=== PATIENT | female | born 1990 | race American Indian/Alaskan Native ===

== ENCOUNTER 2018-02-07 19:30 | Day surgery (SDC) | payer SELFPAY ==
[2018-02-07] MEDS ORDERED: NACL 0.9% 1000 ML 1,000 ML IV ONE (20:09)
[2018-02-07 20:29] LABS: Basophils # (Auto) 0.1 K/mm3 (0.0-0.1); Basophils % (Auto) 0.9 % (0.0-1.8); Eosinophils # (Auto) 0.2 K/mm3 (0.0-0.4); Eosinophils % (Auto) 1.7 % (0.0-4.3); Hematocrit 36.8 % (30.3-42.9); Hemoglobin 12.4 gm/dl (10.1-14.3); Lymphocytes # (Auto) 2.6 K/mm3 (1.2-5.4); Lymphocytes % (Auto) 27.2 % (13.4-35.0); Mean Corpuscular HGB Conc 34 % (30-34); Mean Corpuscular Hemoglobin 26 pg (28-32); Mean Corpuscular Volume 78 fl (79-97); Monocytes # (Auto) 0.5 K/mm3 (0.0-0.8); Monocytes % (Auto) 5.4 % (0.0-7.3); Platelet Count 293 K/mm3 (140-440); Red Blood Count 4.74 M/mm3 (3.65-5.03); Red Cell Distribution Width 14.3 % (13.2-15.2)
[2018-02-07 20:54] LABS: Blood Urea Nitrogen 8 mg/dL (7-17)
[2018-02-07 20:55] LABS: Alanine Aminotransferase 12 units/L (7-56); Albumin 4.2 g/dL (3.9-5); BUN/Creatinine Ratio 13; Calcium 8.8 mg/dL (8.4-10.2); Hemolysis Index 3
[2018-02-07 21:20] LABS: Bacteria,Urine 2+ /HPF (Negative); Bilirubin,Urine NEG (Negative); Blood,Urine NEG (Negative); Color,Urine Yellow (Yellow); Hyaline Casts,Urine 1 /LPF; Mucus,Urine FEW /HPF; Protein,Urine <15 mg/dL mg/dL (Negative)
[2018-02-08] MEDS ORDERED: MARCAINE 0.5% INFILTRATI ONE
--- NOTE | 2018-02-08 00:14 | Emergency Department Report ---
ED Abdominal Pain HPI - General Chief Complaint: Abdominal Pain Stated Complaint: ABD PAIN/ ISSUES Time Seen by Provider: 02/08/18 00:08 Source: patient Mode of arrival: Ambulatory Limitations: No Limitations - History of Present Illness Initial Comments: Patient is a 27-year-old -[place] female last menstrual cycle 4 weeks ago positive home test and presents for abdominal pain for 2 and cramping aching dysuria with frequency no fever no chills no nausea vomiting no vaginal bleeding at this point MD Complaint: abdominal pain Onset/Timin -: days(s) Location: LLQ, RLQ, suprapubic Radiation: LLQ, RLQ Migration to: LLQ, RLQ Severity: moderate Severity scale (0 -10): 4 Quality: cramping, aching Consistency: constant Improves With: nothing Worsens With: nothing Associated Symptoms: denies: nausea, vomiting, diarrhea, fever, chills, constipation, dysuria, hematemesis, hematochezia, melena, hematuria, anorexia, syncope - Related Data LMP (females 10-50): 1 month Allergies Allergy/AdvReac Type Severity Reaction Status Date / Time No Known Allergies Allergy Verified 02/08/18 00:12 ED Review of Systems ROS: Stated complaint: ABD PAIN/ ISSUES Other details as noted in HPI Constitutional: denies: chills, fever Eyes: denies: eye pain, eye discharge, vision change ENT: denies: ear pain, throat pain Respiratory: denies: cough, shortness of breath, wheezing Cardiovascular: denies: chest pain, palpitations Endocrine: no symptoms reported Gastrointestinal: abdominal pain. denies: nausea, vomiting, diarrhea, constipation, hematemesis, melena, hematochezia Genitourinary: urgency, dysuria, frequency, abnormal menses. denies: hematuria , discharge Musculoskeletal: denies: back pain, joint swelling, arthralgia Skin: denies: rash, lesions Neurological: denies: headache, weakness, paresthesias Psychiatric: denies: anxiety, depression Hematological/Lymphatic: denies: easy bleeding, easy bruising ED Past Medical Hx - Past Medical History Previous Medical History?: No - Surgical History Past Surgical History?: No - Social History Smoking Status: Current Every Day Smoker Substance Use Type: Marijuana ED Physical Exam - General Limitations: No Limitations General appearance: alert, in no apparent distress - Head Head exam: Present: atraumatic, normocephalic - Eye Eye exam: Present: normal appearance, PERRL, EOMI Pupils: Present: normal accommodation - ENT ENT exam: Present: normal exam - Neck Neck exam: Present: normal inspection, full ROM. Absent: tenderness, lymphadenopathy, thyromegaly - Respiratory Respiratory exam: Present: normal lung sounds bilaterally. Absent: respiratory distress, wheezes, stridor, chest wall tenderness - Cardiovascular Cardiovascular Exam: Present: regular rate, normal rhythm, normal heart sounds. Absent: systolic murmur, diastolic murmur, rubs, gallop - GI/Abdominal GI/Abdominal exam: Present: soft, tenderness (RLQ LLQ Superpubic ), normal bowel sounds. 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 Absent: tenderness - Back Exam Back exam: Present: normal inspection, full ROM. Absent: tenderness, CVA tenderness (R), CVA tenderness (L), muscle spasm, paraspinal tenderness, vertebral tenderness - Neurological Exam Neurological exam: Present: alert, oriented X3 - Psychiatric Psychiatric exam: Present: normal affect, normal mood - Skin Skin exam: Present: warm, dry, intact, normal color. Absent: rash ED Course Vital Signs 02/07/18 02/08/18 02/08/18 19:35 01:42 02:33 Temperature 97.4 F L Pulse Rate 74 64 Respiratory 16 18 18 Rate Blood Pressure 139/78 Blood Pressure 113/58 [Right] O2 Sat by Pulse 99 98 100 Oximetry ED Medical Decision Making - Lab Data Result diagrams: 02/07/18 20:16 02/07/18 20:16 Laboratory Tests 02/07/18 02/07/18 02/07/18 20:16 20:16 20:16 WBC 9.4 RBC 4.74 Hgb 12.4 Hct 36.8 MCV 78 L MCH 26 L MCHC 34 RDW 14.3 Plt Count 293 Lymph % (Auto) 27.2 Citrus % (Auto) 5.4 Eos % (Auto) 1.7 Baso % (Auto) 0.9 Lymph # 2.6 Citrus # 0.5 Eos # 0.2 Baso # 0.1 Seg Neutrophils % 64.8 Seg Neutrophils # 6.1 Sodium 140 Potassium 3.8 Chloride 101.3 Carbon Dioxide 25 Anion Gap 18 BUN 8 Creatinine 0.6 L Estimated GFR > 60 BUN/Creatinine Ratio 13 Glucose 110 H Calcium 8.8 Total Bilirubin 0.20 AST 21 ALT 12 Alkaline Phosphatase 83 Total Protein 7.4 Albumin 4.2 Albumin/Globulin Ratio 1.3 HCG, Quant 7199 H Urine Color Urine Turbidity Urine pH Ur Specific Garfield Urine Protein Urine Glucose (UA) Urine Ketones Urine Blood Urine Nitrite Urine Bilirubin Urine Urobilinogen Ur Leukocyte Esterase Urine WBC (Auto) Urine RBC (Auto) U Epithel Cells (Auto) Urine Bacteria (Auto) Hyaline Casts Urine Mucus 02/07/18 20:50 WBC RBC Hgb Hct MCV MCH MCHC RDW Plt Count Lymph % (Auto) Citrus % (Auto) Eos % (Auto) Baso % (Auto) Lymph # Citrus # Eos # Baso # Seg Neutrophils % Seg Neutrophils # Sodium Potassium Chloride Carbon Dioxide Anion Gap BUN Creatinine Estimated GFR BUN/Creatinine Ratio Glucose Calcium Total Bilirubin AST ALT Alkaline Phosphatase Total Protein Albumin Albumin/Globulin Ratio HCG, Quant Urine Color Yellow Urine Turbidity Slightly-cloudy Urine pH 6.0 Ur Specific Garfield 1.023 Urine Protein <15 mg/dl Urine Glucose (UA) Neg Urine Ketones Neg Urine Blood Neg Urine Nitrite Neg Urine Bilirubin Neg Urine Urobilinogen 4.0 Ur Leukocyte Esterase Mod Urine WBC (Auto) 4.0 Urine RBC (Auto) 4.0 U Epithel Cells (Auto) 24.0 H Urine Bacteria (Auto) 2+ Hyaline Casts 1 Urine Mucus Few - Radiology Data Radiology results: report reviewed, image reviewed likely Ectopic - Medical Decision Making Ultrasound shows empty uterus ovaries 2 circular mass in proximity of the right ovary, likely ectopic discussed finding with patient plan Consult HAND MOLD MAKER surgery confirmed signed with Dr. Membreno advises will see patient at bedside to make decision on versus weight and see, versus methotrexate, versus surgical intervention there is no vaginal bleeding at this time patient is reasonably comfortable with abdominal cramping at 2/ 10 patient denies medication at this time for pain awaiting HAND MOLD MAKER consult all labs noted and obtained a type and cross pending , [id number]: OBGYN Consult to bedside will admit to OBGYN Dx: Ectopic , to OR for possible Salpingotomy, Dr. Darren JACOBSON at bedside at this time. pt to be admitted to same. Critical care attestation.: If time is entered above; I have spent that time in minutes in the direct care of this critically ill patient, excluding procedure time. ED Disposition Clinical Impression: Ectopic Qualifiers: Location of ectopic : unspecified location Intrauterine status: without intrauterine Qualified Code(s): O00.90 - Unspecified ectopic without intrauterine Disposition: OP ADMIT IP TO THIS HOSP Is pt being admited?: Yes Does the pt Need Aspirin: No Condition: Stable Instructions: Abdominal Pain (ED) Referrals: PRIMARY CARE, [Primary Care Provider] - 3-5 Days Time of Disposition: 05:21
--- NOTE | 2018-02-08 01:30 | Ultrasound Report ---
FINAL REPORT EXAM: US OB TRANSVAGINAL HISTORY: abdominal pain, positive . TECHNIQUE: Transabdominal and transvaginal sonographic evaluation was performed of the female pelvis with and without color Doppler imaging. PRIORS: None. FINDINGS: The uterine myometrium is unremarkable with no focal lesion identified. There is no gestational sac visualized within the uterus. An echogenic, circular complex mass with central cystic component is noted between the right ovary and the uterus. No significant peripheral flow. Measurements: Serum hCG- 7199) estimated age 6-7 weeks). Last menstrual.: 12/19/2017. Uterus: 12.8 x 5.1 x 6.6 Endometrial stripe: 22.5 mm thickness with echogenic appearance. Right ovary: 4.4 x 2.5 x 4.4 cm Left ovary: Incompletely visualized. of unknown location: No adnexal mass or intrauterine sac Probable ectopic: Adnexal mass without yolk sac or embryo. Definite ectopic: Adnexal mass with yolk sac or embryo HCG Discriminatory Level. Based on the Society of Radiologist in Ultrasound (SRU) guidelines. Diagnostic Criteria for Nonviable Early in the First Trimester. Anuel Moon M.D. [facility] 2013; 369: 1443-51. IMPRESSION: 2.7 x 2.2 x 3.4 cm right adnexal mass which appears positioned between the right ovary and uterus in the absence of an intrauterine and with serum b-hCG reported > 3000mIU/mL (reported 7199mIU/mL). Findings concerning for an ectopic . Recommend OB consultation.
--- NOTE | 2018-02-08 01:34 | Ultrasound Report ---
FINAL REPORT EXAM: US OB < = 14 WEEKS FETUS HISTORY: US OB TRANSVAGINAL HISTORY: abdominal pain, positive . TECHNIQUE: Transvaginal sonographic evaluation was performed of the female pelvis with and without color Doppler imaging. PRIORS: None. FINDINGS: The uterine myometrium is unremarkable with no focal lesion identified. There is no gestational sac visualized within the uterus. An echogenic, circular complex mass with central cystic component is noted between the right ovary and the uterus. No significant peripheral flow or free intraabdominal fluid. Measurements: Serum hCG- 7199) estimated age 6-7 weeks). Last menstrual.: 12/19/2017. Uterus: 12.8 x 5.1 x 6.6 Endometrial stripe: 22.5 mm thickness with echogenic appearance. Right ovary: 4.4 x 2.5 x 4.4 cm Left ovary: Incompletely visualized. IMPRESSION: 2.7 x 2.2 x 3.4 cm right adnexal mass which appears positioned between the right ovary and uterus in the absence of an intrauterine and with serum b-hCG reported > 3000mIU/mL (reported 7199mIU/mL). Findings concerning for an ectopic . Recommend OB consultation. No current evidence of ruptured ectopic .
--- NOTE | 2018-02-08 05:17 | History and Physical Report ---
History of Present Illness Date of examination: 02/08/18 Chief complaint: Pelvic pain History of present illness: This is a 27-year-old female 4 para 3 who presents to the ER with pelvic pain that started a couple days ago. LMP 12/19/2017. Patient states she took a home test approximately 4 weeks ago that was positive. While at work yesterday and ultrasound was performed. She was told she had an intrauterine . However her pain became progressively worse and she presented to the ER where the evaluation is consistent with an ectopic . Past History Past Medical History: No medical history Past Surgical History: No surgical history Medications and Allergies Allergies Allergy/AdvReac Type Severity Reaction Status Date / Time No Known Allergies Allergy Verified 02/08/18 00:12 Active Meds: Active Medications Cefazolin Sodium (Ancef/Sterile Water 2 Gm/20 Ml) 2 gm in 20 mls @ 80 mls/hr IV PREOP NR; Protocol Review of Systems All systems: negative - Genitourinary Genitourinary: pelvic pain Exam Vital Signs Temp Pulse Resp BP Pulse Ox 97.4 F L 74 16 139/78 99 02/07/18 19:35 02/07/18 19:35 02/07/18 19:35 02/07/18 19:35 02/07/18 19:35 - General physical appearance Positive: well developed, well nourished, no distress Results - Labs 02/07/18 20:16 02/07/18 20:16 Abnormal lab results 02/07/18 02/07/18 02/07/18 Range/Units 20:16 20:16 20:16 MCV 78 L (79-97) fl MCH 26 L (28-32) pg Creatinine 0.6 L (0.7-1.2) mg/dL Glucose 110 H (65-100) mg/dL HCG, Quant 7199 H (0-4) mIU/mL U Epithel Cells (Auto) (0-13.0) /HPF 02/07/18 Range/Units 20:50 MCV (79-97) fl MCH (28-32) pg Creatinine (0.7-1.2) mg/dL Glucose (65-100) mg/dL HCG, Quant (0-4) mIU/mL U Epithel Cells (Auto) 24.0 H (0-13.0) /HPF Diabetes panel 02/07/18 Range/Units 20:16 Sodium 140 (137-145) mmol/L Potassium 3.8 (3.6-5.0) mmol/L Chloride 101.3 (98-107) mmol/L Carbon Dioxide 25 (22-30) mmol/L BUN 8 (7-17) mg/dL Creatinine 0.6 L (0.7-1.2) mg/dL Glucose 110 H (65-100) mg/dL Calcium 8.8 (8.4-10.2) mg/dL AST 21 (5-40) units/L ALT 12 (7-56) units/L Alkaline Phosphatase 83 (35-129) units/L Total Protein 7.4 (6.3-8.2) g/dL Albumin 4.2 (3.9-5) g/dL Calcium panel 02/07/18 Range/Units 20:16 Calcium 8.8 (8.4-10.2) mg/dL Albumin 4.2 (3.9-5) g/dL Pituitary panel 02/07/18 Range/Units 20:16 Sodium 140 (137-145) mmol/L Potassium 3.8 (3.6-5.0) mmol/L Chloride 101.3 (98-107) mmol/L Carbon Dioxide 25 (22-30) mmol/L BUN 8 (7-17) mg/dL Creatinine 0.6 L (0.7-1.2) mg/dL Glucose 110 H (65-100) mg/dL Calcium 8.8 (8.4-10.2) mg/dL Adrenal panel 02/07/18 Range/Units 20:16 Sodium 140 (137-145) mmol/L Potassium 3.8 (3.6-5.0) mmol/L Chloride 101.3 (98-107) mmol/L Carbon Dioxide 25 (22-30) mmol/L BUN 8 (7-17) mg/dL Creatinine 0.6 L (0.7-1.2) mg/dL Glucose 110 H (65-100) mg/dL Calcium 8.8 (8.4-10.2) mg/dL Total Bilirubin 0.20 (0.1-1.2) mg/dL AST 21 (5-40) units/L ALT 12 (7-56) units/L Alkaline Phosphatase 83 (35-129) units/L Total Protein 7.4 (6.3-8.2) g/dL Albumin 4.2 (3.9-5) g/dL - Imaging US - pelvic: report reviewed, image reviewed Assessment and Plan - Patient Problems (1) Ectopic Current Visit: Yes Status: Acute Qualifiers: Laterality: unspecified laterality Plan to address problem: Labs the ultrasound findings were discussed the patient. She was informed with quantitative beta hCG of approximately 7200 and nothing in the uterus and no uterine bleeding this picture is consistent with an ectopic . In addition to this, the ultrasound appearance consistent with right ectopic lateral to the right ovary. Treatment options for ectopic were discussed patient: 1) Observation however with a quantitative beta hCG at this level if the ectopic continues to grow she is at high risk for rupture, hemorrhage and possible . 2) methotrexate medical therapy-she was informed that this is a chemotherapeutic agent and there is specific scheduled needs to be followed in compliance is critical in order to ensure resolution of the ectopic. 3) surgical intervention-diagnostic laparoscopy with possible removal of her fallopian tube was discussed, surgical risk for discussed including but not limited to bleeding, infection, injury to her bowel or bladder , or major vessel injury that may require blood transfusion. She was informed should her to be removed immediately interfere with her ability to get in the future. Questions were encouraged and answered. She voiced understanding and desires to proceed with surgical intervention. Consents were reviewed and signed.
[2018-02-08] MEDS ORDERED: ANCEF/STERILE WATER 2 GM/20 ML 2 GM/20 ML SYRINGE IV NR (06:00)
[2018-02-08] MEDS ORDERED: MARCAINE 0.5% 30 ML INFILTRATI ONE (06:12)
[2018-02-08] MEDS ORDERED: XYLOCAINE MPF 2% ONE (06:21)
[2018-02-08] MEDS ORDERED: SUBLIMAZE ONE ×2 (06:21→07:16)
[2018-02-08] MEDS ORDERED: ZEMURON IV ONE (06:21)
[2018-02-08] MEDS ORDERED: QUELICIN ONE (06:21)
[2018-02-08] MEDS ORDERED: DIPRIVAN 10 MG/ML IV ONE (06:22)
--- NOTE | 2018-02-08 06:39 | Anesthesia Consultation ---
Anesthesia Consult and Med Hx Date of service: 02/08/18 - Airway Anesthetic Teeth Evaluation: Good ROM Head & Neck: Adequate Mental/Hyoid Distance: Adequate Mallampati Class: Class II Intubation Access Assessment: Probably Good - Pulmonary Exam CTA: Yes - Cardiac Exam Cardiac Exam: RRR - Pre-Operative Health Status ASA Pre-Surgery Classification: ASA2, Emergency Proposed Anesthetic Plan: General - Pulmonary Hx Smoking: Yes (Vapes, last 2 days ago) - Other Systems Hx Obesity: Yes
--- NOTE | 2018-02-08 06:39 | Anesthesia Day of Surgery ---
Anesthesia Day of Surgery - Day of Surgery Patient Examined: Yes Patient H&P Reviewed: Yes Patient is NPO: Yes
[2018-02-08] MEDS ORDERED: ANCEF ONE ×2 (06:51)
[2018-02-08] MEDS ORDERED: TORADOL ONE (07:00)
[2018-02-08] MEDS ORDERED: DILAUDID IV PRN (07:01)
[2018-02-08] MEDS ORDERED: ZOFRAN IV PRN (07:02)
[2018-02-08] MEDS ORDERED: BLOXIVERZ ONE (07:10)
[2018-02-08] MEDS ORDERED: DECADRON ONE (07:10)
[2018-02-08] MEDS ORDERED: ROBINUL ONE (07:10)
--- NOTE | 2018-02-08 07:51 | Post Operative Note ---
Pre-op diagnosis: Ectopic Post-op diagnosis: same Findings: Right proximal tubal ectopic Procedure: Laparoscopic right partial salpingectomy Anesthesia: GETA Surgeon: KEYA DAVIS Estimated blood loss: minimal Specimen disposition: to lab Condition: stable Disposition: PACU
--- NOTE | 2018-02-08 07:58 | Operative Report ---
Operative Report Operative Report: Date: 02/08/2018 Preoperative diagnosis: Ectopic Postoperative diagnosis: Right tubal ectopic Procedure: Laparoscopic right partial salpingectomy Surgeon: Anna Alvarado MD Mixer Wet Pour: [] Anesthesiologist: Sue Summers M.D. Anesthesia: Gen. anesthesia EBL: Minimal Findings: 3 cm right tubal ectopic Procedure: After risks, benefits, consequences, alternatives and complications were discussed patient voiced her understanding and desire to proceed, she was taken to the OR and placed in the supine position. After general anesthesia was induced, she was placed in the dorsal lithotomy position. She was then prepped and draped in the usual sterile fashion. After a timeout was performed, a Azevedo catheter was introduced into the bladder with drainage of clear yellow urine. A operative speculum was introduced into the vagina, and anterior lip cervix was grasped with a ring forcep. The uterus was sounded to 8 cm. The cervix was progressively dilated to allow the Sargis uterine manipulator. The tenaculum and speculum were removed. Sterile gloves were placed and attention was turned to the abdomen. An supraumbilical midline incision was made and a 5 mm Optiview trocar with scope and camera attached were placed through the incision. The abdomen was entered under direct visualization. The abdomen was then insufflated. No bowel, bladder, ureteral, or major vessel injury was noted. She was then placed in steep Trendelenburg position. The above findings were noted. An additional 5 mm trocar was placed through a right midclavicular lower abdominal incision. A 5 mm trocar was introduced under direct visualization. No bowel, bladder or ureteral or major vascular injury was noted. The uterus was elevated, using the 5 mm [place] LigaSure device the right fallopian tube was excised with a portion involving the ectopic. The right lateral incision was enlarged and a 12 mm trocar was introduced under direct visualization. The ectopic was placed in an Endo Catch bag that was introduced through the 12 mm trocar. The trocar with the ectopic and tube were removed. The trocar was introduced again through the incision. The abdomen was inspected. No bleeding was noted, again there was no bowel, bladder, ureteral or vascular injury noted. At which point decision was made to end the procedure. Patient was taken out of Trendelenburg position. The abdomen was desufflated. The fascia of the right lateral incision was reapproximated using 0 Vicryl in [id number] fashion. The Incisions were reapproximated using 4-0 V Monocryl in a subcuticular manner. The incisions were then infused with half percent Marcaine without epinephrine. Then attention was turned to the vagina where the uterine manipulator was removed. No bleeding was noted from the vagina. The Azevedo catheter was then removed, clear yellow urine was noted to drain into the Azevedo tubing as well as into the bag. Counts were correct 3 patient tolerated procedure well was taken to recovery in stable condition
--- NOTE | 2018-02-08 08:01 | Discharge Summary ---
Providers - Providers Date of discharge: 02/08/18 Primary care physician: FLORENCIA ONEIL MD Hospitalization Condition: Good Procedures: Lsc (R) partial salpingectemy Hospital course: unremarkable Disposition: DC-01 TO HOME OR SELFCARE - Discharge Diagnoses (1) Ectopic Status: Acute Qualifiers: Laterality: right Core Measure Documentation - Palliative Care Palliative Care/ Comfort Measures: Not Applicable - Core Measures Any of the following diagnoses?: none Exam - Constitutional Vitals: Temp Pulse Resp BP Pulse Ox 97.4 F L 65 18 118/60 100 02/07/18 19:35 02/08/18 05:22 02/08/18 05:22 02/08/18 05:22 02/08/18 05:22 General appearance: Present: no acute distress - Respiratory Respiratory effort: normal Plan Activity: other (No sex, no exercise, May drive in 3days) Weight Bearing Status: Full Weight Bearing Diet: regular Wound: open to air, keep clean and dry Special Instructions: no heavy lifting (>25#) Follow up with: FLORENCIA ONEIL MD [Primary Care Provider] - 3-5 Days KEYA DAVIS MD [Staff Physician] - 7 Days Prescriptions: RX: Ibuprofen [Motrin 800 MG tab] 800 mg PO TID PRN #30 tablet PRN Reason: Pain
[2018-02-08] MEDS ORDERED: MOTRIN PO NR (08:50)
[2018-02-08 10:30] VITALS: BP 107/67
== END 2018-02-08 11:15 | disposition home or self-care (01) ==
LOC: ED 19:30 → OR 02-08 08:54
PROVIDERS: ATTEND Obstetrics & Gynecology
DX: O00.90 Unspecified ectopic pregnancy without intrauterine pregnancy (principal); O99.331 Smoking (tobacco) complicating pregnancy, first trimester; O99.211 Obesity complicating pregnancy, first trimester; F12.10 Cannabis abuse, uncomplicated; Z3A.01 Less than 8 weeks gestation of pregnancy
CPT/HCPCS: 36415; 76801; 76817; 80053; 81001; 84702; 85025; 86850; 86900; 86901; 88305; 99284; J0330; J0690; J1100; J1885; J2405; J2704; J2710; J3010